=== PATIENT | male | born 1935 | race Two or more races ===

== ENCOUNTER 2019-04-19 16:15 | Emergency (ER) | payer SELFPAY ==
[~2019-04-19] VITALS: Ht 167.6 cm; Wt 81.3 kg
[2019-04-19 17:01] LABS: BASOPHILS % 0.7 % (0.0-2.0); EOSINOPHILS % 0.3 % (0.0-5.0); HEMATOCRIT. 43.5 % (42.0-52.0); HEMOGLOBIN. 13.9 g/dL (14.0-18.0); LYMPHOCYTES % 39.5 % (20.0-50.0); MEAN CORPUSCULAR HEMOGLOBIN 27.5 pg (28.0-32.0); MEAN PLATELET VOLUME 8.5 fl (7.4-10.4); MONOCYTES % 5.8 % (2.0-8.0); NEUTROPHILS % 53.7 % (40.0-76.0); PLATELET 186 x1000/uL (130-400); RED BLOOD CELL COUNT 5.05 mill/uL (4.7-6.1); RED CELL DISTRIBUTION WIDTH 16.4 % (11.6-14.6)
[2019-04-19 17:02] LABS: CHLORIDE 106 mEq/L (98-107); PROTHROMBIN TIME 10.6 sec (9.6-11.0)
[2019-04-19 17:06] LABS: ETHANOL BLOOD < 10 mg/dL
[2019-04-19 17:08] LABS: LDL CHOLESTEROL 58 mg/dL (5-100)
[2019-04-19] MEDS ORDERED: IOHEXOL-350 100 ML BOTTLE ONE (17:10)
[2019-04-19] MEDS ORDERED: LORAZEPAM 2MG/ML CPJ IV ONE (17:15)
[2019-04-19] MEDS ORDERED: LEVETIRACETAM 1000MG/100ML 100 ML IV ONE (17:15)
[2019-04-19] MEDS ORDERED: FOSPHENYTOIN SODIUM 1,000 MG in SODIUM CHLORIDE 0.9% 100 ML IV NR (17:15)
[2019-04-19] MEDS ORDERED: CALCIUM GLUCONATE 1,000 MG in DEXT 5% WATER 100 ML IV ONE (17:30)
[2019-04-19] MEDS ORDERED: SODIUM BICARBONATE 8.4% 1 MEQ/ML 50ML SYR IV ONE (17:30)
[2019-04-19] MEDS ORDERED: INSULIN REGULAR (HUMULIN R) 300UNITS/3ML IV ONE (17:30)
[2019-04-19 18:05] LABS: PHOSPHORUS 3.5 mg/dL (2.5-4.9)
[2019-04-19] MEDS ORDERED: ASPIRIN 81MG TABLET PO ONE (22:00)
[2019-04-19 22:33] VITALS: BP 153/76
== END 2019-04-19 22:45 | disposition short-term general hospital (02) ==
LOC: ER 16:50 → CANBEDREQ 17:47 → ER 22:45
DX: R53.1 Weakness (principal); E11.9 Type 2 diabetes mellitus without complications; I10 Essential (primary) hypertension; Z86.73 Personal history of transient ischemic attack (TIA), and cerebral infarction without residual deficits
CPT/HCPCS: 36415; 70450; 70496; 70498; 71045; 80053; 80320; 82962; 83721; 83735; 84100; 84484; 85025; 85610; 93005; 96365; 96368; 96375; 99285; J0610; J1815; J1953; J2060; J3490; J7050; J7060; Q9967; G0480